=== PATIENT | male | born 1945 | race Caucasian/White ===

== ENCOUNTER 2016-10-04 09:57 | Inpatient (IN) ==
[2016-10-02 10:52] LABS: MANUAL DIFF NEEDED? NO
[2016-10-02 11:05] LABS: BASO% 0.3 % (0.0-0.8); EOS# 0.04 X1000 (0.0-0.7); EOS% 0.5 % (0.0-10.0); HEMATOCRIT 44.4 % (42.0-52.0); HEMOGLOBIN 15.7 g/dL (14.0-18.0); LYMPH# 1.22 X1000 (1.2-3.4); LYMPH% 16.3 % (20.5-51.1); MCHC 35.4 g/dL (33-37); MCV 82.1 FL (81-99); MONO# 0.55 X1000 (0.11-0.59); MONO% 7.3 % (1.7-9.3); NEUT% 75.6 % (42.2-75.2); PLT 467 X1000 (130-400); RBC 5.41 XMIL (4.7-6.1)
[2016-10-02 11:20] LABS: AGAP 12; BUN 13 mg/dL (8-22); CALCIUM 9.5 mg/dL (8.8-10.2); CHLORIDE 88 mmol/L (98-107); COSMO 251; POTASSIUM 5.5 mmol/L (3.5-5.1); SODIUM 125 mmol/L (136-145); TCO2 25 mmol/L (25-35)
[2016-10-04] MEDS ORDERED: KEFZOL 1 GM/D5W 1 GM/50 ML IVPB IV ONE (12:00)
[2016-10-04] MEDS: NS 1,000 ML IV SCH ×2 (12:24→22:30)
[2016-10-04 12:37] LABS: MANUAL DIFF NEEDED? NO
[2016-10-04 12:39] LABS: BASO% 0.3 % (0.0-0.8); EOS# 0.03 X1000 (0.0-0.7); EOS% 0.4 % (0.0-10.0); HEMATOCRIT 43.4 % (42.0-52.0); HEMOGLOBIN 15.6 g/dL (14.0-18.0); LYMPH# 1.18 X1000 (1.2-3.4); LYMPH% 16.3 % (20.5-51.1); MCH 29.4 PG (27-31); MCHC 35.9 g/dL (33-37); MCV 81.7 FL (81-99); MONO# 0.62 X1000 (0.11-0.59); MONO% 8.6 % (1.7-9.3); MPV 8.9 FL (7.4-10.4); NEUT% 74.4 % (42.2-75.2); PLT 395 X1000 (130-400); RBC 5.31 XMIL (4.7-6.1)
[2016-10-04 13:01] LABS: AGAP 14; BUN 16 mg/dL (8-22); CALCIUM 9.4 mg/dL (8.8-10.2); CHLORIDE 85 mmol/L (98-107); COSMO 250; POTASSIUM 4.5 mmol/L (3.5-5.1); SODIUM 124 mmol/L (136-145); TCO2 25 mmol/L (25-35)
--- NOTE | 2016-10-04 13:54 | EKG Report ---
Test Performed on : 10/04/2016 12:03:45 PM Test Reason : Hyponatremia, hyperkalemia Blood Pressure : / mmHG Vent. Rate : 080 BPM Atrial Rate : 080 BPM P-R Int : 204 ms QRS Dur : 126 ms QT Int : 398 ms P-R-T Axes : 081 053 241 degrees QTc Int : 459 ms Normal sinus rhythm. Possible Left atrial enlargement Left ventricular hypertrophy with QRS widening and repolarization abnormality Abnormal ECG When compared with ECG of 01-NOV-2014 12:28, Vent. rate has decreased BY 72 BPM Confirmed by Daniel SANCHEZ, Carltios Stubbs ([id number]) on 10/06/2016 9:30:35 PM
[2016-10-04] MEDS: NICODERM PATCH TD PRN (15:52)
[2016-10-04 16:58] LABS: AGAP 13; BUN 17 mg/dL (8-22); CALCIUM 8.8 mg/dL (8.8-10.2); CHLORIDE 87 mmol/L (98-107); COSMO 261; POTASSIUM 4.4 mmol/L (3.5-5.1); SODIUM 129 mmol/L (136-145); TCO2 29 mmol/L (25-35)
[2016-10-04] MEDS ORDERED: TYLENOL PO PRN (21:04)
[2016-10-05] MEDS: TOPROL XL PO SCH ×3 (06:13→12:20)
[2016-10-05] MEDS ORDERED: KEFZOL ONE (06:22)
[2016-10-05] MEDS ORDERED: NS 1,000 ML ONE ×2 (06:22→11:29)
[2016-10-05] MEDS ORDERED: HEPARIN ONE ×2 (06:22→13:53)
[2016-10-05] MEDS ORDERED: OFIRMEV 1000 MG/ISOTONIC SOLN 1,000 MG/100 ML BOTTLE ONE ×2 (06:49→13:53)
[2016-10-05] MEDS ORDERED: VERSED ONE (06:52)
[2016-10-05] MEDS ORDERED: KEFZOL 1 GM/D5W 1 GM/50 ML IVPB IV ONE (07:00)
[2016-10-05] MEDS ORDERED: KEFZOL 1 GM/D5W 1 GM/50 ML IVPB ONE (07:10)
[2016-10-05 07:38] LABS: AGAP 17; BUN 15 mg/dL (8-22); CHLORIDE 90 mmol/L (98-107); COSMO 262; POTASSIUM 3.6 mmol/L (3.5-5.1); SODIUM 130 mmol/L (136-145); TCO2 23 mmol/L (25-35)
[2016-10-05 09:20] LABS: URINE MICRO REVIEW NEEDED? NO; URINE SOURCE CATH
[2016-10-05 09:33] LABS: BILIRUBIN URINE NEGATIVE (NEGATIVE); BLOOD URINE TRACE (NEGATIVE); COLOR STRAW; GLUCOSE URINE NEGATIVE (NEGATIVE); LEUKOCYTES URINE NEGATIVE (NEGATIVE); NITRITE URINE NEGATIVE (NEGATIVE); PROTEIN URINE TRACE mg/dL (NEGATIVE); SP GRAVITY URINE 1.006; TURBIDITY URINE CLEAR (CLEAR); UROBILINOGEN URINE NORMAL (NORMAL)
[2016-10-05 09:34] LABS: UR EPITHELIAL CELLS <10 /HPF (<10); URINE BACTERIA NEGATIVE /HPF; URINE RBC <10 /HPF (<10); URINE WBC <10 /HPF (<10)
[2016-10-05] MEDS ORDERED: FENTANYL ONE (10:33)
[2016-10-05] MEDS ORDERED: DIPRIVAN 1% ONE (10:33)
--- NOTE | 2016-10-05 11:17 | OPERATIVE NOTE ---
PROCEDURE DATE: 10/05/2016 DATE OF THE PROCEDURE: 10/05/2016. PROCEDURE PERFORMED: Right femoral artery endarterectomy; aortobifemoral bypass. SURGEON: Eric Morrison MD. TOP DYEING MACHINE LOADER: Dr. Gonzales, who assisted with retraction, exposure, the anastomoses and closure, as well as Tommy Douglass RN. PREOPERATIVE DIAGNOSIS: Aortoiliac occlusion with claudication. POSTOPERATIVE DIAGNOSIS: Aortoiliac occlusion with claudication. DESCRIPTION OF PROCEDURE: Satisfactory general endotracheal anesthesia was achieved. The abdomen was prepped and draped in a sterile fashion, including the groins. We made a vertical incision of the left groin. We incised then and stayed medially and reflected the inguinal lymph tissue laterally and dissected down to the junction of the vein and artery, exposed the common femoral artery surrounded with an umbilical tape and then dissected distally. We surrounded the vessel loops around the profunda and the superficial femoral artery. Small branches were surrounded with 2-0 silks. We then did exactly the same procedure on the other side, reflecting the lymph node tissue laterally. On the right side the profunda was actually further distal in the wound, and so we were able to surround the common femoral proximally and distally. Antibiotic sponges were laid in the groin wounds, and then we turned our attention the abdominal wall and made a vertical incision from the xiphoid down to the pubis. We went through the midline fascia into the abdominal cavity. We incised the retroperitoneum down to the [place] aorta. It was rather calcified. After incising the peritoneum, we ligated the inferior mesenteric vein, providing more cephalad exposure of the aorta all the way up to the renal vein. We then placed our bowels within the bowel bag. We used a Bookwalter retractor. We placed retractors to retract the abdominal wall, as well as the bowel to the right. This provided adequate exposure of the retroperitoneum. We made a tunnel in the retroperitoneum along the course of the external iliac vessels to the groin and passed umbilical tape to provide a tunnel for the limbs of the prosthetic graft. We stayed posterior to the ureters. We then gave the patient 6000 units of heparin systemically. After that had circulated for about 7 minutes, we chose a 16 x 8 Hemashield Gold graft. It was a knitted, double velour vascular graft. We cut the proximal end to the appropriate length. We cut off the cuff to use around the proximal anastomosis. We then used a side transverse clamp on the aorta just below the renals and clamped it where there was actually some non calcified area of the aorta. We then cut out about a 2 cm segment of the aortic wall in order to provide some exposure. We over sewed the distal end with a 3-0 Prolene stitch as there was minimal bleeding from it. This provided complete hemostasis, however. We then constructed the proximal anastomosis with 3-0 Prolene running stitch as we neared completion. We then tied it and passed the cuff up over the anastomosis. We then flushed the aorta and hemostasis around the proximal end was satisfactory. We sucked out the limbs. We then passed the large Anju clamp from the groin to into the abdominal cavity, and delivered the right limb to the right groin and the left limb to the left groin. We then turned our attention to the right side. Because of the profound calcification, we opened the femoral artery after clamping it proximally and distally and had to endarterectomize it in order to get a lumen. After doing so, we had enough room to sew the graft. We did have very meager inflow from the right external iliac. We did have some backbleeding also. We could pass a 3 and a 4 probe down into the profunda for a ways. After removing the plaque in an endarterectomy, we felt that the distal plaque would stay seated satisfactorily. We then cut the graft to match the arteriotomy and constructed this anastomosis with a 5-0 Prolene stitch. As we neared completion of the anastomosis, we back bled the distal artery, flushed the graft down the right limb having the left limb occluded. We then finished the anastomosis. We checked for bleeding points and required a couple of extra 5-0 Prolene stitches to achieve complete hemostasis of the anastomosis. We then allowed flow down the right limb. We placed some Gelfoam, as well as some antibiotic sponge there. We then went to the left side. The left side was not quite as calcified. We were able to make arteriotomy down to the bifurcation of the common femoral. We again could pass a 3 and a 4 probe down the profunda for a ways. We then again cut the graft to match the arteriotomy and did this anastomosis with a 5-0 Prolene stitch. As we neared completion, we back bled the distal vessels, flushed the left limb of the graft. We then finished the anastomosis and flow was established. Once again, a couple of extra stitches were required for complete hemostasis. We then irrigated out both wounds with antibiotic solution. We turned our attention back to the abdominal cavity. Hemostasis was satisfactory. We then began closing the retroperitoneum with a 2-0 Polysorb. We did lay a tongue of omentum over the graft so that there would be no chance that the duodenum would lay on the graft. So, the omentum protected the duodenum from the graft. We then finished closure of the peritoneum over the omentum. We returned the bowel to the abdominal cavity. It looked satisfactory. We closed the peritoneum anteriorly with a 2-0 chromic. We closed the fascia with a running #2 Prolene. We then looked back at the groins; they were both hemostatic. We irrigated again with antibiotic solution as Kefzol-impregnated saline and closed the subcutaneous tissue in 2 layers with a 2-0 Polysorb running and a 3-0 Polysorb running. The skin was then closed in the abdominal wound as well as the groin wounds with gasper. Sterile dressings were applied. He tolerated it well. He was sent to the recovery room in satisfactory condition. cc: MD Matthew Bush MD Edwin K. Matthews, MD
[2016-10-05] MEDS: NS 1,000 ML IV SCH ×2 (12:20→21:04)
[2016-10-05] MEDS: DILAUDID IV PRN ×3 (12:39→21:04)
[2016-10-05] MEDS ORDERED: NEOSTIGMINE ONE (13:53)
[2016-10-05] MEDS ORDERED: ROBINUL ONE (13:53)
[2016-10-05] MEDS ORDERED: PIGGYBACK SET 7393 ONE (13:53)
[2016-10-05] MEDS ORDERED: NEO-SYNEPHRINE ONE (13:53)
[2016-10-05] MEDS ORDERED: ANESTHESIA PB SET 88 IN 5742 ONE (13:53)
[2016-10-05] MEDS ORDERED: XYLOCAINE-MPF 2% ONE (13:53)
[2016-10-05] MEDS ORDERED: QUELICIN (DOSE) ONE (13:53)
[2016-10-05] MEDS ORDERED: NS 250 ML ONE (13:53)
[2016-10-05] MEDS ORDERED: DECADRON ONE (13:53)
[2016-10-05] MEDS ORDERED: LR 1,000 ML ONE (13:53)
[2016-10-05] MEDS ORDERED: NS 3,000 ML ONE (13:53)
[2016-10-05] MEDS ORDERED: ZOFRAN ONE (13:53)
[2016-10-05] MEDS ORDERED: NORCURON ONE (13:53)
[2016-10-05] MEDS ORDERED: EXTENSION SET 32 IN 4522 ONE (13:53)
[2016-10-05] MEDS: KEFZOL 1 GM/D5W 1 GM/50 ML IVPB IV SCH ×2 (14:30→23:23)
[2016-10-05] MEDS: PERIDEX MT SCH (21:04)
[2016-10-06] MEDS: DILAUDID IV PRN ×6 (01:23→20:56)
[2016-10-06] MEDS: NS 1,000 ML IV SCH ×2 (04:42→18:33)
[2016-10-06 06:03] LABS: MANUAL DIFF NEEDED? NO
[2016-10-06] MEDS: KEFZOL 1 GM/D5W 1 GM/50 ML IVPB IV SCH ×3 (06:08→23:57)
[2016-10-06 06:35] LABS: AGAP 11; BUN 14 mg/dL (8-22); CALCIUM 7.5 mg/dL (8.8-10.2); CHLORIDE 100 mmol/L (98-107); COSMO 267; POTASSIUM 4.3 mmol/L (3.5-5.1); SODIUM 133 mmol/L (136-145); TCO2 22 mmol/L (25-35)
[2016-10-06 06:54] LABS: HEMATOCRIT 33.8 % (42.0-52.0); HEMOGLOBIN 11.7 g/dL (14.0-18.0); IMM GRAN# 0.03 X1000 (0.0-0.04); IMM GRAN% 0.2 % (0.0-0.5); LYMPH# 1.02 X1000 (1.2-3.4); LYMPH% 7.4 % (20.5-51.1); MCH 29.1 PG (27-31); MCHC 34.6 g/dL (33-37); MCV 84.1 FL (81-99); MONO% 9.4 % (1.7-9.3); MPV 9.7 FL (7.4-10.4); PLT 412 X1000 (130-400); RBC 4.02 XMIL (4.7-6.1)
[2016-10-06] MEDS: PERIDEX MT SCH ×2 (08:00→20:55)
[2016-10-06] MEDS: SODIUM CHLORIDE PO SCH (08:00)
[2016-10-06] MEDS: HYDROCHLOROTHIAZIDE PO SCH (08:00)
[2016-10-06] MEDS: PRINIVIL PO SCH (08:00)
[2016-10-06] MEDS: ASPIRIN PO SCH (08:00)
[2016-10-06] MEDS: TOPROL XL PO SCH (09:00)
[2016-10-06] MEDS ORDERED: TUMS EXTRA STRENGTH PO ONE (12:41)
[2016-10-07] MEDS: DILAUDID IV PRN ×5 (00:02→20:43)
[2016-10-07] MEDS: NS 1,000 ML IV SCH (03:05)
[2016-10-07 05:55] LABS: EOS# 0.01 X1000 (0.0-0.7); EOS% 0.1 % (0.0-10.0); HEMATOCRIT 35.7 % (42.0-52.0); HEMOGLOBIN 12.3 g/dL (14.0-18.0); LYMPH% 4.5 % (20.5-51.1); MANUAL DIFF NEEDED? NO; MCH 29.4 PG (27-31); MCHC 34.5 g/dL (33-37); MCV 85.4 FL (81-99); MONO# 1.36 X1000 (0.11-0.59); MONO% 8.7 % (1.7-9.3); MPV 9.3 FL (7.4-10.4); NEUT% 86.7 % (42.2-75.2); PLT 366 X1000 (130-400); RBC 4.18 XMIL (4.7-6.1)
[2016-10-07 06:20] LABS: AGAP 13; BUN 22 mg/dL (8-22); CALCIUM 8.7 mg/dL (8.8-10.2); CHLORIDE 92 mmol/L (98-107); COSMO 267; POTASSIUM 3.6 mmol/L (3.5-5.1); SODIUM 131 mmol/L (136-145); TCO2 26 mmol/L (25-35)
[2016-10-07] MEDS: KEFZOL 1 GM/D5W 1 GM/50 ML IVPB IV SCH ×2 (07:00→15:28)
[2016-10-07] MEDS: TOPROL XL PO SCH (08:46)
[2016-10-07] MEDS: PRINIVIL PO SCH (08:47)
[2016-10-07] MEDS: ASPIRIN PO SCH (08:47)
[2016-10-07] MEDS: SODIUM CHLORIDE PO SCH (08:47)
[2016-10-07] MEDS: PERIDEX MT SCH ×2 (08:47→20:42)
[2016-10-07] MEDS: D5 1/2 NS + KCL 20 MEQ 1,000 ML IV SCH ×2 (08:59→15:46)
--- NOTE | 2016-10-07 09:01 | PROGRESS NOTE ---
DATE: 10/07/2016 SUBJECTIVE: Mr. Lenny Lopez is a 70-year-old white male, patient of Dr. Eric Morrison, who underwent an aortobifemoral arterial bypass graft on 10/05/2016. He is now postop day 2. He was moved from the ICU to the floor yesterday. His abdomen remains distended, and he has had no bowel activity. He is awake and cooperative, and he states that his feet feel fine. OBJECTIVE: His heart rate is 105, blood pressure 191/87, O2 saturation 100%. He is on 2 L nasal cannula O2, and he is getting breathing treatments. He has good urine output. He is afebrile. On IV Kefzol because of his bypass graft. His hematocrit is 36%. His BUN and creatinine are 22 and 0.6. PLAN: He is still n.p.o., and we may try to start some clear liquids tomorrow, but his abdomen is still distended. We will try to increase his activity. cc: MD Eric Mcguire MD
[2016-10-07] MEDS: HYDROCHLOROTHIAZIDE PO SCH (09:10)
[2016-10-07] MEDS ORDERED: TUMS PO ONE (20:26)
[2016-10-07] MEDS: NICODERM PATCH TD PRN (20:43)
[2016-10-08] MEDS: KEFZOL 1 GM/D5W 1 GM/50 ML IVPB IV SCH ×4 (00:37→21:47)
[2016-10-08] MEDS: DILAUDID IV PRN ×7 (00:37→21:47)
[2016-10-08] MEDS: D5 1/2 NS + KCL 20 MEQ 1,000 ML IV SCH ×2 (04:13→16:26)
[2016-10-08] MEDS: HYDROCHLOROTHIAZIDE PO SCH (08:55)
[2016-10-08] MEDS: ASPIRIN PO SCH (08:55)
[2016-10-08] MEDS: PERIDEX MT SCH ×2 (08:55→21:47)
[2016-10-08] MEDS: SODIUM CHLORIDE PO SCH (08:55)
[2016-10-08] MEDS: PRINIVIL PO SCH (08:56)
[2016-10-08] MEDS: TOPROL XL PO SCH (08:56)
--- NOTE | 2016-10-08 09:30 | PROGRESS NOTE ---
DATE: 10/08/2016 Mr. Lenny Lopez is status post aortobifemoral arterial bypass graft. He is now postop day 3. He states that his feet feel good. All his wounds are intact and dressed. He is awake, cooperative. His heart rate is 107, blood pressure 160/77, O2 saturation is 100% on nasal cannula O2. He is voiding without difficulty. He is on IV Kefzol and fluids. He is on a baby aspirin a day. He is on a clear liquid diet. We will continue that because I do not think his bowel activity is normal. We need to increase his activity. I have asked him to get out of bed today. cc: MD Eric Mcguire MD
[2016-10-08] MEDS: TUMS PO PRN ×3 (11:44→21:47)
[2016-10-09] MEDS: D5 1/2 NS + KCL 20 MEQ 1,000 ML IV SCH ×2 (04:31→05:49)
[2016-10-09] MEDS: KEFZOL 1 GM/D5W 1 GM/50 ML IVPB IV SCH ×3 (04:31→07:49)
[2016-10-09] MEDS: DILAUDID IV PRN ×6 (05:50→21:11)
[2016-10-09] MEDS: TUMS PO PRN ×2 (06:10→12:20)
[2016-10-09] MEDS: ASPIRIN PO SCH (09:10)
[2016-10-09] MEDS: TOPROL XL PO SCH (09:10)
[2016-10-09] MEDS: PERIDEX MT SCH ×2 (09:10→21:08)
[2016-10-09] MEDS: SODIUM CHLORIDE PO SCH (09:10)
[2016-10-09] MEDS: PRINIVIL PO SCH (09:10)
[2016-10-09] MEDS: HYDROCHLOROTHIAZIDE PO SCH (09:10)
[2016-10-09] MEDS ORDERED: DULCOLAX PR ONE (12:09)
[2016-10-09] MEDS ORDERED: D5 1/2 NS + KCL 20 MEQ 1,000 ML IV SCH (12:10)
[2016-10-09] MEDS: NICODERM PATCH TD PRN (12:12)
[2016-10-10] MEDS: DILAUDID IV PRN ×6 (01:10→19:57)
[2016-10-10] MEDS: TUMS PO PRN ×2 (04:17→10:38)
[2016-10-10 05:48] LABS: EOS# 0.03 X1000 (0.0-0.7); EOS% 0.3 % (0.0-10.0); HEMATOCRIT 26.4 % (42.0-52.0); HEMOGLOBIN 9.1 g/dL (14.0-18.0); LYMPH# 0.59 X1000 (1.2-3.4); LYMPH% 6.7 % (20.5-51.1); MANUAL DIFF NEEDED? NO; MCH 29.4 PG (27-31); MCHC 34.5 g/dL (33-37); MCV 85.4 FL (81-99); MONO# 1.14 X1000 (0.11-0.59); MONO% 12.9 % (1.7-9.3); MPV 9.6 FL (7.4-10.4); NEUT% 80.1 % (42.2-75.2); PLT 404 X1000 (130-400); RBC 3.09 XMIL (4.7-6.1)
[2016-10-10 05:52] LABS: AGAP 11; BUN 24 mg/dL (8-22); CALCIUM 8.5 mg/dL (8.8-10.2); CHLORIDE 90 mmol/L (98-107); COSMO 263; POTASSIUM 3.6 mmol/L (3.5-5.1); SODIUM 128 mmol/L (136-145); TCO2 27 mmol/L (25-35)
[2016-10-10] MEDS: TOPROL XL PO SCH ×2 (07:40→08:03)
[2016-10-10] MEDS: HYDROCHLOROTHIAZIDE PO SCH ×2 (07:40→08:04)
[2016-10-10] MEDS: PERIDEX MT SCH ×4 (07:41→21:52)
[2016-10-10] MEDS: SODIUM CHLORIDE PO SCH ×2 (07:41→08:03)
[2016-10-10] MEDS: PRINIVIL PO SCH ×2 (07:41→08:03)
[2016-10-10] MEDS: ASPIRIN PO SCH ×2 (07:41→08:03)
[2016-10-10] MEDS ORDERED: SODIUM CHLORIDE 0.9% INJ ONE (14:03)
[2016-10-10] MEDS ORDERED: PROTONIX IV ONE (14:03)
[2016-10-10] MEDS: NS + KCL 20 MEQ 1,000 ML IV SCH (14:46)
[2016-10-10 15:31] LABS: HEMATOCRIT 26.6 % (42.0-52.0); HEMOGLOBIN 9.2 g/dL (14.0-18.0)
[2016-10-10] MEDS ORDERED: CALMOSEPTINE OINTMENT TOP PRN (16:17)
[2016-10-11] MEDS: NS + KCL 20 MEQ 1,000 ML IV SCH ×3 (06:02→23:56)
[2016-10-11 06:40] LABS: BASO% 0.1 % (0.0-0.8); EOS# 0.05 X1000 (0.0-0.7); EOS% 0.7 % (0.0-10.0); HEMATOCRIT 23.3 % (42.0-52.0); HEMOGLOBIN 8.2 g/dL (14.0-18.0); IMM GRAN# 0.05 X1000 (0.0-0.04); IMM GRAN% 0.7 % (0.0-0.5); LYMPH# 0.51 X1000 (1.2-3.4); LYMPH% 6.8 % (20.5-51.1); MANUAL DIFF NEEDED? YES; MCH 29.6 PG (27-31); MCHC 35.2 g/dL (33-37); MCV 84.1 FL (81-99); MONO# 1.39 X1000 (0.11-0.59); MONO% 18.7 % (1.7-9.3); MPV 9.8 FL (7.4-10.4); PLT 406 X1000 (130-400); RBC 2.77 XMIL (4.7-6.1)
[2016-10-11 06:53] LABS: AGAP 14; BUN 18 mg/dL (8-22); CALCIUM 8.1 mg/dL (8.8-10.2); CHLORIDE 91 mmol/L (98-107); COSMO 261; POTASSIUM 2.7 mmol/L (3.5-5.1); SODIUM 129 mmol/L (136-145); TCO2 24 mmol/L (25-35)
[2016-10-11] MEDS ORDERED: PRILOSEC PO SCH (07:00)
[2016-10-11 07:51] LABS: BANDS 28 % (0-1); LYMPHS 14 % (21-51); MONO 16 % (1-9); NRBC 1 % (0-0)
[2016-10-11] MEDS: ASPIRIN PO SCH (09:06)
[2016-10-11] MEDS: PRINIVIL PO SCH (09:07)
[2016-10-11] MEDS: HYDROCHLOROTHIAZIDE PO SCH (09:07)
[2016-10-11] MEDS: TOPROL XL PO SCH (09:07)
[2016-10-11] MEDS: DILAUDID IV PRN ×4 (09:07→21:33)
[2016-10-11] MEDS: SODIUM CHLORIDE PO SCH (09:07)
[2016-10-11] MEDS: PERIDEX MT SCH ×2 (09:07→21:30)
[2016-10-11] MEDS ORDERED: NS 500 ML IV SCH ×3 (10:13→17:41)
[2016-10-11] MEDS: TUMS PO PRN (10:16)
[2016-10-11] MEDS ORDERED: SODIUM CHLORIDE 0.9% INJ ONE (10:47)
[2016-10-11] MEDS: PROTONIX IV SCH (11:27)
[2016-10-11] MEDS ORDERED: GOLYTELY PO ONE (14:00)
[2016-10-11] MEDS ORDERED: XYLOCAINE-MPF 2% ONE (15:03)
[2016-10-11] MEDS ORDERED: DIPRIVAN 1% ONE (16:20)
--- NOTE | 2016-10-11 16:20 | CONSULTATION ---
DATE OF CONSULTATION: 10/11/2016 REASON FOR REFERRAL: Melena, anemia. HISTORY OF PRESENT ILLNESS: This is a 70-year-old, white male, who had a recent right femoral artery endarterectomy with aortobifemoral bypass by Dr. Morrison on 10/05/2016. He had done well after surgery until yesterday when he developed multiple black stools. His hemoglobin and hematocrit have dropped. He will be receiving packed red blood cells. We were asked for consult for GI bleed. Patient reports lower abdominal and mid abdominal pain and cramping. He has started noticing black stools yesterday. He does report some chest pain and shortness of breath. He has been transferred to the ICU for closer evaluation. PAST MEDICAL HISTORY: For carotid artery stenosis, atherosclerosis. PAST SURGERIES: Recent surgery on October 05 of right femoral artery endarterectomy and aortobifemoral bypass by Dr. Morrison. He has had coronary artery bypass grafting in the past about 3-4 years ago. He also reports having surgery on his hand in the past. SOCIAL HISTORY: Positive for tobacco use 1 pack daily. History of alcohol use, but quit about 4- 5 years ago. FAMILY HISTORY: Hypertension and heart disease in his mother. Alcohol abuse in a brother. ALLERGIES: No known drug allergies. HOME MEDICATIONS: 1. Ellipta one inhaler daily. 2. Metoprolol 50 mg daily. 3. Prinivil 20 mg daily. 4. Hydrochlorothiazide 12.5 mg daily. 5. Sodium chloride 1 g daily. 6. Cilostazol 100 mg twice daily. 7. Aspirin 81 mg daily. REVIEW OF SYSTEMS: Per HPI. PHYSICAL EXAM: General: Patient is awake, alert and oriented to person, place and time. HEENT: Normocephalic, atraumatic. Pupils equal, round, reactive to light. Conjunctiva are pale. Cardiovascular: Regular rate and rhythm. Respiratory: Lung sounds essentially clear. Extremities: He does have decreased pedal pulses. He has had recent surgery. Has a little more swelling on the right leg and foot than the left. Neurological: Cranial nerves 2-12 grossly intact. Vital Signs: Temperature 98.6 degrees, pulse 112, respirations 17, blood pressure 198/84. LABORATORY: Hematology: White count 7.45, hemoglobin 8.2, hematocrit 23.3, MCV 84.1, platelets 406. Chemistry: Sodium 129, potassium 2.7, chloride 91, CO2 24, BUN 18, creatinine 0.7, glucose 94. ASSESSMENT AND PLAN: Recent surgery status post right femoral artery endarterectomy and aortobifemoral bypass on 10/05/2016. He has been in the hospital since his surgery over the last 2 days. He has had multiple black stools with a decrease in his hemoglobin and hematocrit. He has orders to receive packed red blood cells. We will plan to proceed with an EGD today. Further plans will be made according to findings. I have discussed the procedure, along with benefits and risks with the patient, and he wishes to proceed. Further plans will be made by Dr. Davis. I have discussed this case with him. Thank you for this consultation. Dictated by KIM Abad for Will Davis MD cc: KIM Mendieta MD Robert C. Walker, MD
[2016-10-11] MEDS: ZOFRAN IV PRN ×2 (17:51→21:32)
[2016-10-12] MEDS: DILAUDID IV PRN ×5 (03:43→21:00)
[2016-10-12] MEDS: ZOFRAN IV PRN (03:43)
[2016-10-12 04:53] LABS: HEMATOCRIT 32.7 % (42.0-52.0); HEMOGLOBIN 11.7 g/dL (14.0-18.0)
--- NOTE | 2016-10-12 09:15 | OPERATIVE NOTE ---
PROCEDURE DATE: 10/11/2016 PROCEDURE PERFORMED: Esophagogastroduodenoscopy and biopsy. HISTORY: This is a 70-year-old gentleman who recently had surgery. Has started having some GI bleed and dropped his hemoglobin and hematocrit. EGD was done to rule out upper GI pathology resulting in his symptoms. MEDICATIONS: MAC as per Anesthesia. SCOPE: Olympus [id number]. DESCRIPTION OF PROCEDURE: Informed consent was obtained from the patient. The procedure, risks, benefits, and alternatives were explained in layman's terms. He understood. All his pertinent questions were answered. The patient was brought to the endoscopy unit and was premedicated as per Anesthesia. After adequate sedation, while he was lying in the left lateral position, the gastroscope was introduced into the posterior pharynx and advanced under direct vision into the esophagus. The middle and distal esophagus showed evidence of severe esophagitis and it had whitish exudate covering the esophagus. No distinct ulcer or erosions were seen. The distal esophagus right at the GE junction was hyperemic and edematous but I did not see any evidence of active bleeding or stigmata of recent bleed seen. The scope was then passed through the esophagus, through the stomach. The stomach was examined on both straight and retroflexed views which revealed normal cardia, fundus, body, and antrum. No ulcer, AVM, or masses were seen. No evidence of active bleeding seen. The scope was then passed through the pylorus, into the duodenal bulb, and the 2nd part of duodenum. Both appeared to be normal. The scope was then removed. The patient tolerated the procedure with no complications noted. Of note, during the endoscopy, I did see an exophytic mass covering the aryepiglottic fold. This mass was about 2 to 3 cm, exophytic, covering half of the laryngeal fold. IMPRESSION: 1. Gastrointestinal bleed, most likely lower. No evidence of ulcer, arteriovenous malformations, or masses seen. 2. Laryngeal mass. 3. Severe esophagitis. PLAN: I would continue on proton pump inhibitor. Recheck hemoglobin and hematocrit, transfuse if necessary. Recheck hemoglobin and hematocrit after this unit of blood is transfused, and continue to recheck hemoglobin and hematocrit, transfuse if necessary. In the meantime, patient will be prepared for colonoscopy in the morning. I have explained the findings and plan to the patient and family member. They understood. All their pertinent questions were answered. Patient will need an ENT consult as well. cc: MD Eric Patterson MD
[2016-10-12] MEDS: NICODERM PATCH TD PRN (09:19)
[2016-10-12] MEDS: PRINIVIL PO SCH (09:20)
[2016-10-12] MEDS: PERIDEX MT SCH ×2 (09:20→21:01)
[2016-10-12] MEDS: SODIUM CHLORIDE PO SCH (09:20)
[2016-10-12] MEDS: HYDROCHLOROTHIAZIDE PO SCH (09:20)
[2016-10-12] MEDS: TOPROL XL PO SCH (09:21)
[2016-10-12] MEDS: PROTONIX IV SCH (09:26)
[2016-10-12] MEDS ORDERED: DIPRIVAN 1% ONE (09:52)
[2016-10-12] MEDS ORDERED: LR 1,000 ML ONE (10:07)
[2016-10-12] MEDS ORDERED: ANESTHESIA PB SET 88 IN 5742 ONE (10:07)
[2016-10-12] MEDS ORDERED: XYLOCAINE-MPF 2% ONE (10:07)
[2016-10-12] MEDS: ZOSYN 3.375 GM/NS 3.375 GM/50 ML IVPB IV SCH ×2 (14:06→21:00)
--- NOTE | 2016-10-12 15:13 | OPERATIVE NOTE ---
PROCEDURE DATE: 10/12/2016 DATE OF PROCEDURE: 10/12/2016. PROCEDURES: Colonoscopy, polypectomy and biopsy. MEDICATION USED: MAC as per anesthesia. EQUIPMENT USED: Scope is Olympus [id number]. PREOPERATIVE DIAGNOSIS: Anemia secondary to gastrointestinal bleed. POSTOPERATIVE DIAGNOSES: 1. Moderately severe colitis involving the sigmoid colon and the rectum, possible ischemic, however infectious etiology is also possible. 2. Diverticulosis. 3. Colon polyps. HISTORY: This is a 70-year-old gentleman, who is in the hospital after surgery. He had started having some GI bleed. EGD done yesterday did not reveal any pathology that would explain his bleeding and anemia. Colonoscopy was done to rule out lower GI pathology. DESCRIPTION OF PROCEDURE: Informed consent was obtained from the patient. The procedure, risks, benefits, alternatives were explained in layman's terms. He understood. All his pertinent questions were answered. Patient was brought to the endoscopy unit and was premedicated as per anesthesia. After adequate sedation while he was lying in the left lateral position, digital rectal exam was performed which was normal. Scope was then gently introduced into the rectum and immediately I saw evidence of severe proctitis. There was whitish exudate adherent to the mucosa. There were patches of hyperemic mucosa seen in between. These ulcerations continued into the sigmoid colon and the mucosa was edematous with whitish exudate adherent. I was able to advance the scope through the inflamed portion of the rectum, sigmoid colon, and in the descending colon the mucosa appeared to be normal. I was able to advance the scope all the way up to the cecum. The cecum was identified by ileocecal valve and appendiceal orifice. The scope was withdrawn paying close attention to details. Preparation was fair. There was a small quantity of brown stool present scattered throughout the colon, which was mostly loose that could be and was removed via vigorous irrigation, suctioning. In the cecum, I saw cluster of sessile polyps, which was about 2 cm by 1 cm. These were sessile smooth surface. These polyps were removed by piecemeal method without any complication. Another polyp was seen in the cecum which was about 5-6 mm sessile smooth surface. That polyp was also removed by snare and cautery without any difficulty. Otherwise cecum was normal. At the hepatic flexure, I did see another rather large flat polyp, but these was a lot of stool present in that area. I did not attempt to remove that polyp at this time. The scope was withdrawn further up to the cecum and up to the sigmoid colon where there was inflammation and ulceration noted. Multiple biopsies were obtained from the affected part. The appearance of the mucosa was suggestive of ischemic colitis. However, infectious colitis is also a possibility. The scope was withdrawn. I did not do retroflex through the rectum because of the ulcerated rectum. Patient tolerated the procedure, no complication noted. Patient was then transferred to the recovery area in a stable condition. IMPRESSION: 1. Severe proctitis and colitis involving the sigmoid colon, most likely ischemic; however, infectious etiology is also a possibility. Biopsied. 2. Colon polyp of cecum. Polypectomy performed. 3. Diverticulosis sigmoid colon. 4. Polyp in the ascending colon and hepatic flexure. A polypectomy not attempted. RECOMMENDATION: At this point, I would continue supportive care. Keep his vital signs within normal, and also recheck hemoglobin and hematocrit and transfuse as necessary. Continue antibiotic and hopefully the mucosa will heal. The appearance does not suggest that he has got infarction in that area and, depending on his progress from here on, further plans will be made. I have explained the findings and plan to the patient's brother, who was present at the bedside. He understood. All his pertinent questions answered. cc: MD Eric Patterson MD
[2016-10-13] MEDS: DILAUDID IV PRN ×6 (00:06→20:10)
[2016-10-13] MEDS: ZOSYN 3.375 GM/NS 3.375 GM/50 ML IVPB IV SCH ×4 (02:28→23:54)
[2016-10-13] MEDS ORDERED: SODIUM CHLORIDE 0.9% 10 ML ONE (06:16)
[2016-10-13] MEDS: PRINIVIL PO SCH (09:38)
[2016-10-13] MEDS: HYDROCHLOROTHIAZIDE PO SCH (09:38)
[2016-10-13] MEDS: SODIUM CHLORIDE PO SCH (09:39)
[2016-10-13] MEDS: TOPROL XL PO SCH (09:39)
[2016-10-13] MEDS: PERIDEX MT SCH ×2 (09:40→20:11)
[2016-10-13] MEDS: PROTONIX IV SCH (09:40)
[2016-10-13] MEDS: NS + KCL 20 MEQ 1,000 ML IV SCH (16:32)
[2016-10-13 21:11] LABS: AGAP 15; BUN 8 mg/dL (8-22); CALCIUM 7.1 mg/dL (8.8-10.2); CHLORIDE 87 mmol/L (98-107); COSMO 259; POTASSIUM 2.6 mmol/L (3.5-5.1); SODIUM 129 mmol/L (136-145); TCO2 27 mmol/L (25-35)
[2016-10-14] MEDS: DILAUDID IV PRN ×2 (00:39→05:55)
[2016-10-14] MEDS: POTASSIUM CHLORIDE 20 MEQ/SWI 20 MEQ/100 ML IVPB IV SCH ×3 (00:39→05:55)
[2016-10-14] MEDS: ZOSYN 3.375 GM/NS 3.375 GM/50 ML IVPB IV SCH ×5 (05:54→23:59)
[2016-10-14 06:13] LABS: MANUAL DIFF NEEDED? NO
[2016-10-14 06:20] LABS: BASO% 0.1 % (0.0-0.8); EOS% 1.5 % (0.0-10.0); HEMATOCRIT 29.3 % (42.0-52.0); HEMOGLOBIN 10.2 g/dL (14.0-18.0); IMM GRAN% 0.8 % (0.0-0.5); LYMPH# 0.82 X1000 (1.2-3.4); LYMPH% 6.2 % (20.5-51.1); MCH 29.1 PG (27-31); MCHC 34.8 g/dL (33-37); MCV 83.5 FL (81-99); MONO# 1.18 X1000 (0.11-0.59); MONO% 8.9 % (1.7-9.3); MPV 9.2 FL (7.4-10.4); NEUT% 82.5 % (42.2-75.2); PLT 436 X1000 (130-400); RBC 3.51 XMIL (4.7-6.1)
[2016-10-14 06:46] LABS: AGAP 10; BUN 8 mg/dL (8-22); CALCIUM 7.1 mg/dL (8.8-10.2); CHLORIDE 90 mmol/L (98-107); COSMO 263; MAGNESIUM 1.1 mg/dL (1.5-2.7); POTASSIUM 2.6 mmol/L (3.5-5.1); SODIUM 132 mmol/L (136-145); TCO2 32 mmol/L (25-35)
[2016-10-14] MEDS ORDERED: MAGNESIUM SULFATE 1 GM/D5W 1 GM/100 ML IVPB IV ONE (07:16)
[2016-10-14] MEDS ORDERED: POTASSIUM CHLORIDE 60 MEQ in NS 500 ML IV ONE (07:17)
[2016-10-14] MEDS: PERIDEX MT SCH ×2 (08:48→21:17)
[2016-10-14] MEDS: HYDROCHLOROTHIAZIDE PO SCH (08:48)
[2016-10-14] MEDS: SODIUM CHLORIDE PO SCH (08:49)
[2016-10-14] MEDS: PRILOSEC PO SCH (08:49)
[2016-10-14] MEDS: TOPROL XL PO SCH (08:49)
[2016-10-14] MEDS: PRINIVIL PO SCH (08:49)
[2016-10-14] MEDS: NORCO-7.5 PO PRN ×3 (11:23→21:17)
[2016-10-14] MEDS: NS + KCL 20 MEQ 1,000 ML IV SCH (15:11)
[2016-10-15] MEDS: NORCO-7.5 PO PRN ×5 (01:55→22:41)
[2016-10-15] MEDS: ZOSYN 3.375 GM/NS 3.375 GM/50 ML IVPB IV SCH ×4 (03:53→22:41)
[2016-10-15 06:06] LABS: MANUAL DIFF NEEDED? NO
[2016-10-15] MEDS: PRILOSEC PO SCH (06:17)
[2016-10-15 06:19] LABS: BASO% 0.2 % (0.0-0.8); EOS# 0.21 X1000 (0.0-0.7); EOS% 1.7 % (0.0-10.0); HEMATOCRIT 30.8 % (42.0-52.0); HEMOGLOBIN 10.6 g/dL (14.0-18.0); IMM GRAN# 0.11 X1000 (0.0-0.04); IMM GRAN% 0.9 % (0.0-0.5); LYMPH# 0.81 X1000 (1.2-3.4); LYMPH% 6.5 % (20.5-51.1); MCHC 34.4 g/dL (33-37); MCV 84.2 FL (81-99); MONO# 1.05 X1000 (0.11-0.59); MONO% 8.4 % (1.7-9.3); MPV 9.1 FL (7.4-10.4); NEUT% 82.3 % (42.2-75.2); PLT 478 X1000 (130-400); RBC 3.66 XMIL (4.7-6.1)
[2016-10-15 06:40] LABS: AGAP 10; BUN 7 mg/dL (8-22); CHLORIDE 90 mmol/L (98-107); COSMO 260; SODIUM 130 mmol/L (136-145); TCO2 30 mmol/L (25-35)
[2016-10-15 07:13] LABS: CALCIUM 6.6 mg/dL (8.8-10.2)
[2016-10-15] MEDS ORDERED: POTASSIUM CHLORIDE 60 MEQ in NS 500 ML IV ONE (08:09)
[2016-10-15] MEDS: SODIUM CHLORIDE PO SCH (09:56)
[2016-10-15] MEDS: TOPROL XL PO SCH (09:56)
[2016-10-15] MEDS: PRINIVIL PO SCH (09:57)
[2016-10-15] MEDS: HYDROCHLOROTHIAZIDE PO SCH (09:57)
[2016-10-15] MEDS: PERIDEX MT SCH ×2 (09:58→22:41)
[2016-10-15] MEDS: TUMS PO SCH ×3 (11:04→16:33)
[2016-10-15] MEDS: NS + KCL 20 MEQ 1,000 ML IV SCH (17:27)
[2016-10-16] MEDS: NORCO-7.5 PO PRN ×2 (06:04→10:37)
[2016-10-16] MEDS: PRILOSEC PO SCH (06:04)
[2016-10-16] MEDS: ZOSYN 3.375 GM/NS 3.375 GM/50 ML IVPB IV SCH ×2 (06:04→10:34)
--- NOTE | 2016-10-16 07:12 | EKG Report ---
Test Performed on : 10/13/2016 7:23:30 PM Test Reason : V-Tach 5 beat Blood Pressure : / mmHG Vent. Rate : 108 BPM Atrial Rate : 108 BPM P-R Int : 178 ms QRS Dur : 136 ms QT Int : 370 ms P-R-T Axes : 074 011 143 degrees QTc Int : 495 ms Sinus tachycardia. with premature supraventricular complexes. and fusion complexes Left atrial enlargement Left ventricular hypertrophy with QRS widening and repolarization abnormality Abnormal ECG When compared with ECG of 04-OCT-2016 12:03, fusion complexes are now present premature supraventricular complexes. are now present Nonspecific T wave abnormality has replaced inverted T waves in Inferior leads T wave amplitude has decreased in Anterior leads Confirmed by Daniel SANCHEZ, Carlitos Stubbs ([id number]) on 10/16/2016 8:58:09 AM
[2016-10-16 07:52] LABS: MANUAL DIFF NEEDED? NO
[2016-10-16 08:05] LABS: BASO% 0.3 % (0.0-0.8); EOS# 0.23 X1000 (0.0-0.7); HEMATOCRIT 36.4 % (42.0-52.0); HEMOGLOBIN 12.5 g/dL (14.0-18.0); IMM GRAN# 0.09 X1000 (0.0-0.04); IMM GRAN% 0.8 % (0.0-0.5); LYMPH% 6.1 % (20.5-51.1); MCH 29.1 PG (27-31); MCHC 34.3 g/dL (33-37); MCV 84.8 FL (81-99); MONO# 1.08 X1000 (0.11-0.59); MONO% 9.4 % (1.7-9.3); MPV 9.2 FL (7.4-10.4); NEUT% 81.4 % (42.2-75.2); PLT 506 X1000 (130-400); RBC 4.29 XMIL (4.7-6.1)
[2016-10-16 08:29] LABS: AGAP 15; BUN 5 mg/dL (8-22); CALCIUM 7.4 mg/dL (8.8-10.2); CHLORIDE 88 mmol/L (98-107); COSMO 265; SODIUM 133 mmol/L (136-145); TCO2 30 mmol/L (25-35)
[2016-10-16] MEDS: HYDROCHLOROTHIAZIDE PO SCH (09:21)
[2016-10-16] MEDS: TOPROL XL PO SCH (09:22)
[2016-10-16] MEDS: PRINIVIL PO SCH (09:22)
[2016-10-16] MEDS: TUMS PO SCH ×2 (09:22→13:12)
[2016-10-16] MEDS: SODIUM CHLORIDE PO SCH (09:22)
[2016-10-16] MEDS: PERIDEX MT SCH (09:22)
[2016-10-16 11:46] VITALS: BP 160/70
--- NOTE | 2016-10-16 13:06 | PROGRESS NOTE ---
DATE: 10/16/2016 SUBJECTIVE: Patient states he is feeling better. He is sitting up in a chair. OBJECTIVE: He is tolerating his diet. Vital signs: Temperature 98.6 degrees, pulse 89, respirations 18, blood pressure 160/70. LABORATORY: Hematology white count 11.50, hemoglobin 12.5, hematocrit 36.4, MCV 84.8, chemistry sodium 133, potassium 3.0, chloride 88, CO2 30, BUN 5, creatinine 0.8, glucose 117. ASSESSMENT AND PLAN: 1. He has had recent post right femoral artery endarterectomy and aortobifemoral bypass on 10/05/2016. He had started having melena and anemia and an EGD and colonoscopy were done. EGD findings on 10/11/2016 showed a laryngeal mass and severe esophagitis. Recommended ENT consult. That can be done as an outpatient but if he continues in the hospital, may need to be done while he is in house. 2. Colonoscopy on 10/12/2016 showed severe proctitis and colitis. Questionable ischemic with biopsies. Biopsies are pending on both upper and lower endoscopy. We will continue to follow. Further plans will be made as needed and according to findings. I have discussed this case with Dr. Davis. Dictated by KIM Abad for Will Davis MD cc: KIM Mendieta MD Robert C. Walker, MD
--- NOTE | 2016-10-31 22:42 | DISCHARGE SUMMARY ---
ADMISSION DATE: 10/04/2016 DISCHARGE DATE: 10/16/2016 PRIMARY DISCHARGE DIAGNOSIS: Severe aortic occlusive disease with rest pain in the lower extremities. OTHER DIAGNOSES: 1. Ischemic colitis. 2. Laryngeal mass. 3. Postoperative anemia. PRIMARY PROCEDURE: 1. Aortobifemoral bypass with right femoral endarterectomy on 10/05/2016. 2. Upper GI endoscopy with biopsy of a laryngeal mass. 3. Colonoscopy with polypectomy and biopsy. This was done by Dr. Davis. HOSPITAL COURSE: This is a 70-year-old with severe peripheral vascular disease and rest pain in his lower extremities. He was admitted on the for an aortobifemoral bypass. We had to do a right femoral endarterectomy in order to have a place to sew into. Postoperatively he did satisfactory with that, with satisfactory perfusion to his lower extremities. However, he developed anemia postop with GI bleeding. Dr. Davis was consulted. He required transfusion of 2 units of packed cells. He was placed on Protonix IV. Endoscopy revealed a laryngeal mass and severe esophagitis which may have been the source of his bleeding. He was placed on sucralfate as well to treat his esophagitis. A colonoscopy proved him to have some colitis which may be ischemic in etiology. It was superficial so it was felt no intervention was indicated. We started him on p.o. intake. He was started on IV Zosyn. His bowels moved. His bleeding stopped. He did have a 5 beat run of ventricular tachycardia that was found to be probably related to hypokalemia, and that was treated. He had low magnesium as well, and that was treated. This resolved his ventricular tachycardia. By 10/16 he was eating, his bowels were moving, no more bleeding. His legs were adequately perfused. He had no more ectopy so it was felt he could be discharged home. He will be referred to ENT as an outpatient to follow up the laryngeal mass. cc: Eric Morrison MD
== END 2016-10-16 15:53 | disposition home or self-care (01) ==
LOC: DIRADM 09:57 → 4N 10:02 → ICU 10-05 08:41 → PREINTOOBSV 10-05 09:41 → PREOBSVTOIN 10-05 09:54 → 4N 10-06 14:25 → ICU 10-11 11:34 → 4N 10-12 15:27
PROVIDERS: ADMIT Surgery; ATTEND Surgery